=== PATIENT | female | born 1990 | race American Indian/Alaskan Native ===

== ENCOUNTER 2019-12-21 12:59 | Emergency (ER) | payer SELFPAY ==
[2019-12-21 13:06] VITALS: BP 111/69
--- NOTE | 2019-12-21 13:40 | Emergency Department Report ---
Chief Complaint: Urogenital-Female Stated Complaint: MISSED CYCLE - Exam Vital Signs: Vital Signs 12/21/19 13:05 Temperature 98.0 F Pulse Rate 80 Respiratory 16 Rate Blood Pressure 111/69 O2 Sat by Pulse 100 Oximetry MSE screening note: Focused history and physical exam performed. Due to findings the following was ordered: Ms. Rock desirebruce test. No pain or vaginal bleeding. Missed period in December. Referred to OB and outpatient clinic. MSE performed. ED Disposition for MSE Clinical Impression: Encounter for medical screening examination Disposition: MED SCREENING EXAM-LEFT Condition: Stable Referrals: SHERRON FREIRE MD [Staff Physician] - 3-5 Days [facility] [Outside] - 3-5 Days
== END 2019-12-21 13:40 | disposition left against medical advice (07) ==
LOC: ED 12:59
DX: Z32.00 Encounter for pregnancy test, result unknown (principal)
CPT/HCPCS: 99281